=== PATIENT | female | born 1945 | race Caucasian/White ===

== ENCOUNTER 2017-07-28 15:06 | Outpatient (CLI) | payer BC | END 2017-07-28 15:07 | disposition home or self-care (01) | LOC: BICMAMMO 15:06 | PROVIDERS: ATTEND Family Medicine | DX: Z12.31 Encounter for screening mammogram for malignant neoplasm of breast (principal) | CPT/HCPCS: 77063; 77067 ==

== ENCOUNTER 2017-08-31 13:23 | Outpatient (CLI) | payer MEDICARE, BC | END 2017-08-31 13:24 | disposition home or self-care (01) | LOC: BICMRI 13:23 | PROVIDERS: ATTEND Family Medicine | DX: M25.551 Pain in right hip (principal); M22.2X1 Patellofemoral disorders, right knee ==

== ENCOUNTER 2018-07-30 14:18 | Outpatient (CLI) | payer MEDICARE, BC | END 2018-07-30 14:19 | disposition home or self-care (01) | LOC: BICMAMMO 14:18 | PROVIDERS: ATTEND Family Medicine | DX: Z12.31 Encounter for screening mammogram for malignant neoplasm of breast (principal); R92.1 Mammographic calcification found on diagnostic imaging of breast | CPT/HCPCS: 77063; 77067 ==

== ENCOUNTER 2018-09-01 10:22 | Inpatient (IN) | payer MEDICARE, BC ==
[2018-09-01 11:05] LABS: Band 20 % (5-11); Hemoglobin 17.4 g/dL (12.0-16.0); Lymphocytes 6 % (21-51); MDiff Complete? YES; Mean Corpuscular HGB CONC 32.8 g/dL (32.0-36.0); Mean Corpuscular Hemoglobin 28.7 pg (27.0-31.0); Mean Corpuscular Volume 87.7 fL (78.0-98.0); Mean Platelet Volume 9.6 fL (7.4-10.4); Monocytes 2 % (0-10); Neutrophil 72 % (42-75); Platelet Count 241 thou/uL (130-400); RBC Distribution Width 13.7 % (11.5-14.5); Red Blood Cell (RBC) Count 6.07 mill/uL (4.20-5.40); Vacuoles SLIGHT; White Blood Cell (WBC) Count 26.6 thou/uL (4.8-10.8)
[2018-09-01 11:08] LABS: ALT (SGPT) 19 U/L (8-55); AST (SGOT) 14 U/L (5-34); Albumin 3.9 g/dL (3.4-4.8); Alkaline Phosphatase 100 U/L (40-150); Anion Gap 20 mmol/L (10-20); BUN (Urea Nitrogen) 37 mg/dL (9.8-20.1); Bilirubin, Total 0.7 mg/dL (0.2-1.2); Calc. Creatinine Clearance 0 mL/min (70-130); Calcium 9.7 mg/dL (7.8-10.44); Carbon Dioxide 18 mmol/L (23-31); Chloride 96 mmol/L (98-107); Estimated GFR-MDRD 42; Globulin 3.4 g/dL (2.4-3.5); Glucose 171 mg/dL (83-110); Lipase 51 U/L (8-78); Potassium 3.6 mmol/L (3.5-5.1); Protein, Total 7.3 g/dL (6.0-8.3); Sodium 130 mmol/L (136-145)
[2018-09-01 11:17] LABS: Lactic Acid 4.5 mmol/L (0.5-2.2)
[2018-09-01] MEDS ORDERED: Ondansetron PF 4 MG/2 ML Vial ONE ×2 (11:59→13:58)
[2018-09-01] MEDS ORDERED: Ketorolac Tromethamine 30 MG/ML VIAL ONE ×2 (12:24→13:58)
--- NOTE | 2018-09-01 12:26 | RAD ---
CHEST 1 VIEW: Date: 09/01/18 HISTORY: Chest pain, shortness of breath, and abdominal pain with vomiting. FINDINGS: Monitor leads overlie the chest. Heart size is normal. The lungs are clear. IMPRESSION: No acute intrathoracic disease. Atherosclerosis of aorta. POS: [facility]
[2018-09-01 12:32] LABS: Bilirubin Small (Negative); Blood, Urine Negative (Negative); Clarity CLOUDY (Clear); Glucose, Urine (Dipstick) Negative (Negative); Leukocyte Negative (Negative); Nitrite Negative (Negative); Protein, Urine (Dipstick) 30 mg/dL (Neg-Trace); Specific Gravity, Urine 1.027 (1.002-1.036); Urobilinogen 0.2 mg/dL (0.2-1.0)
[2018-09-01 12:34] LABS: Bacteria/HPF None Seen HPF (None Seen); Squamous Epithelial 0-3 HPF (0-3); WBC/HPF 0-3 HPF (0-3)
[2018-09-01 12:42] LABS: Pathc Cast-AUWi Flag 5.84 (0-2.49)
[2018-09-01] MEDS ORDERED: ISOVUE-370 76%-LOCM 1 ML ONE (12:54)
[2018-09-01 13:01] LABS: Hyaline Casts/LPF 4-6 HYALINE CAST LPF (0-3 Hyaline)
--- NOTE | 2018-09-01 13:56 | CT ---
CT ABDOMEN AND PELVIS WITH CONTRAST: Date: 09/01/18 Multiple axial tomograms obtained through the abdomen and pelvis with IV enhancement. INDICATION: Upper abdominal pain. FINDINGS: Lung bases appear clear. Images through the liver reveal numerous scattered low density lesions. In the left lobe, there is a 1.0 cm lesion seen superiorly along the margin. Another 1.0 cm lesion is in the left lobe. There is a larger 2.5 cm lesion seen posterior left lobe. These have densities consistent with cysts. There are several other smaller low density foci, some of which are indeterminate. The stomach is mildly distended. There is mural thickening and inflammatory change involving the vira on of the duodenal bulb and first portion of the duodenum. There are several small pockets of gas whi ch appear extraluminal and adjacent to this first and second portion of the duodenum. These extend in to the region of the gallbladder fossa. The gallbladder is not definitely identified and may be contr acted and inflamed. These numerous tiny foci combined with inflammatory changes surrounding duodenum are concerning for duodenal ulcer with confined perforation. Inflammatory stranding is seen at the root of the mesentery. There are gas-filled dilated loops of proximal small bowel with decompressed distal ileal loops. The findings indicate a moderate to high grade mid small bowel obstruction. Etiology is not apparent on t his study. Adrenal glands and kidneys are unremarkable. Both kidneys show small low density foci which are most consistent with small cystic lesions which are too small to characterize. Aorta normal caliber. The colon is decompressed. Diverticulosis of the left colon and sigmoid noted. Tiny amount of free fl uid in the deep pelvis. Patient appears to be post hysterectomy. IMPRESSION: 1. Mural thickening and inflammatory change involving the first and second portions of the duodenum. Numerous small extraluminal gas pockets adjacent to this portion of the duodenum extending into the region of the gallbladder fossa. Duodenal ulcer with confined perforation should be excluded. Gallbla dder is not definitely identified and may be contracted and inflamed. 2. Moderate to high grade mid small bowel obstruction. 3. Numerous small low density lesions in the kidneys, too small to adequately characterize, most lik xochilt representing small cysts. 4. Diverticulosis of sigmoid colon. 5. Small amount of free fluid in the deep pelvis. Findings relayed to Dr. Davenport. CODE CR. POS: [facility]
[2018-09-01] MEDS ORDERED: PHENYLEPHRINE-NS 100 MCG/ML 10 ML SYRINGE ONE (13:58)
[2018-09-01] MEDS ORDERED: PROPOFOL 200 MG/20 ML VIAL ONE (13:58)
[2018-09-01] MEDS ORDERED: Succinylcholine Chloride 20 MG/ML 10 ml SYRINGE FS ONE (13:58)
[2018-09-01] MEDS ORDERED: Rocuronium Bromide 10 MG/ML (10ML VIAL) ONE (13:58)
[2018-09-01] MEDS ORDERED: Dexamethasone 20 MG/5 ML VIAL ONE (13:58)
[2018-09-01] MEDS ORDERED: Glycopyrrolate 0.2 MG/ML 5 ML SYRINGE ONE (13:58)
[2018-09-01] MEDS ORDERED: Sodium Chloride 0.9% 100 ML ONE (14:10)
[2018-09-01] MEDS ORDERED: Piperacillin/Tazobactam 3.375 GM VIAL ONE (14:10)
[2018-09-01] MEDS ORDERED: Midazolam HCl 2 mg/2 ml Vial ONE (14:41)
[2018-09-01] MEDS ORDERED: Fentanyl 100 MCG/2 ML VIAL ONE ×7 (14:41→19:01)
[2018-09-01] MEDS ORDERED: Dexamethasone 4 mg/ml Vial ONE (14:41)
--- NOTE | 2018-09-01 15:16 | HP ---
CHIEF COMPLAINT: Abdominal pain, nausea, vomiting, diarrhea. HISTORY OF PRESENT ILLNESS: The patient is a 73-year-old very pleasant white female. She began feeling ill about 5 days ago while she was on vacation in [place]. She had episodes of nausea and vomiting for the first couple of days. She subsequently had some diarrhea. She saw her primary care physician I believe yesterday and was given a prescription for Zofran with suspected gastroenteritis. She continued to deteriorate and last night she felt horrible and was very nauseated and took very little orally. She presented to the emergency room here today for evaluation. She was initially tachycardic with a pulse of about 115. She has been IV fluid hydrated and her pulse rate is now down to about 100. She underwent laboratory and radiologic studies. The CT scan shows inflammation around the 1st and 2nd part of the duodenum with potential extraluminal gas that looks potentially consistent with contained perforation of the duodenum. Additionally, she has changes typical of a small bowel obstruction with distended loops of small bowel and very obviously decompressed normal loops of distal bowel. There is no free air or free fluid diffusely in her abdomen. Her laboratory studies revealed that her lactate is elevated at 4.5. She has electrolyte abnormalities with low levels of sodium and chloride and she is little acidotic as well. Her BUN and creatinine are both up a little bit. Her CBC shows a white blood cell count of 26, with a hemoglobin level of 17, platelet count is 241 and she has 20% bandemia. She tells me that her discomfort is primarily in the upper abdomen. PAST MEDICAL HISTORY: Depression, hypertension, hypercholesterolemia, arthritis. PAST SURGICAL HISTORY: Hysterectomy in her 20s, carpal tunnel surgery, jaw surgery. MEDICATIONS: 1. Effexor. 2. Blood pressure medication. 3. Cholesterol medication. 4. Plaquenil. 5. P.r.n. tramadol/Tylenol 3. ALLERGIES: PENICILLIN, BUT SHE IS UNCERTAIN WHAT HER REACTION WAS TO THIS. PERSONAL AND SOCIAL HISTORY: She is , with 2 children. She lives in [place]. Her daughter is present at bedside. Her primary care physician is Dr. Palmer. Her hospital pharmacy director is Dr. Velazquez. She does not smoke nor does she drink alcohol and she currently lives by herself. REVIEW OF SYSTEMS: Otherwise unremarkable. FAMILY HISTORY: Noncontributory. PHYSICAL EXAMINATION: VITAL SIGNS: Her pulse is 100, blood pressure is stable and within normal limits. GENERAL: She is a well-developed, well-nourished, very pleasant and alert white female, but she is obviously uncomfortable. She is alert and oriented x3. HEAD, EYES, EARS, NOSE, AND THROAT: Unremarkable. NECK: Supple. LUNGS: Clear to auscultation anteriorly. CARDIAC: Regular rate and rhythm without murmur. ABDOMEN: Soft with minimal tenderness inferiorly. An obvious discomfort in the upper abdomen, but no evidence of peritonitis. Bowel sounds are present and fairly normoactive. EXTREMITIES: Unremarkable. LABORATORY AND X-RAYS: As mentioned above. ASSESSMENT AND PLAN: The patient with what appears to be a perforated duodenal ulcer, probably contained and a small-bowel obstruction, probably related to a prior hysterectomy. I would recommend laparotomy to address both problems. I have discussed this in detail with the patient and her daughter and they understand and agree to proceed with surgery at this time. Job ID: [id number]
[2018-09-01] MEDS ORDERED: SUGAMMADEX SODIUM 500 MG/5 ML VIAL ONE (17:57)
[2018-09-01] MEDS ORDERED: D5 1/2 NS w/20 mEq KCL 1,000 ML ONE (19:03)
[2018-09-01] MEDS ORDERED: Ondansetron PF 4 MG/2 ML Vial IVP PRN (19:45)
[2018-09-01] MEDS ORDERED: hydrALAZINE 20 MG/ML VIAL SLOW IVP PRN (19:45)
[2018-09-01] MEDS ORDERED: Promethazine HCl 25 MG/ML VIAL IM PRN (19:45)
[2018-09-01] MEDS ORDERED: Morphine 4 MG/ML VIAL SLOW IVP PRN (19:45)
[2018-09-01] MEDS: Ketorolac Tromethamine 30 MG/ML VIAL IVP SCH (21:11)
[2018-09-01] MEDS: Acetaminophen 1,000 MG in Premix Bag 1 BAG IVPB SCH (21:11)
[2018-09-01] MEDS: D5 1/2 NS w/20 mEq KCL 1,000 ML IV SCH (21:14)
[2018-09-01] MEDS: cefOXitin Sodium/Dextrose,Iso 2 GM in Premix Bag 1 BAG IVPB SCH (21:53)
[2018-09-01 22:36] VITALS: BMI 27.8
[2018-09-01] MEDS ORDERED: Famotidine/PF 20 mg/2ml Vial SLOW IVP SCH (22:45)
[2018-09-01] MEDS ORDERED: Famotidine 20 MG TAB PO SCH (22:45)
[2018-09-01] MEDS: Morphine 4 MG/ML VIAL SLOW IVP PRN (23:29)
[2018-09-02] MEDS: Ketorolac Tromethamine 30 MG/ML VIAL IVP SCH ×4 (03:22→20:47)
[2018-09-02] MEDS: Acetaminophen 1,000 MG in Premix Bag 1 BAG IVPB SCH ×3 (03:24→15:54)
[2018-09-02] MEDS: D5 1/2 NS w/20 mEq KCL 1,000 ML IV SCH ×2 (03:34→13:31)
[2018-09-02] MEDS: Morphine 4 MG/ML VIAL SLOW IVP PRN ×2 (04:52→09:32)
[2018-09-02] MEDS: cefOXitin Sodium/Dextrose,Iso 2 GM in Premix Bag 1 BAG IVPB SCH (06:26)
[2018-09-02 07:47] LABS: Anion Gap 11 mmol/L (10-20); BUN (Urea Nitrogen) 41 mg/dL (9.8-20.1); Calc. Creatinine Clearance 39 mL/min (70-130); Calcium 7.9 mg/dL (7.8-10.44); Carbon Dioxide 22 mmol/L (23-31); Chloride 100 mmol/L (98-107); Estimated GFR-MDRD 35; Glucose 156 mg/dL (83-110); Potassium 4.1 mmol/L (3.5-5.1); Sodium 129 mmol/L (136-145)
[2018-09-02 08:56] LABS: #Lymphocytes 1.2 thou/uL (1.20-3.40); #Monocytes 0.7 thou/uL (0.11-0.59); #Neutrophils 7.8 thou/uL (1.40-6.50); %Basophils 0.1 % (0.0-1.0); %Monocytes 7.1 % (0.0-10.0); %Neutrophils 80.7 % (42.0-75.0); Hemoglobin 12.2 g/dL (12.0-16.0); Mean Corpuscular HGB CONC 32.6 g/dL (32.0-36.0); Mean Corpuscular Hemoglobin 28.6 pg (27.0-31.0); Mean Corpuscular Volume 87.8 fL (78.0-98.0); Mean Platelet Volume 9.4 fL (7.4-10.4); Platelet Count 219 thou/uL (130-400); RBC Distribution Width 13.6 % (11.5-14.5); Red Blood Cell (RBC) Count 4.25 mill/uL (4.20-5.40); White Blood Cell (WBC) Count 9.7 thou/uL (4.8-10.8)
[2018-09-02] MEDS: Enoxaparin Sodium 40 MG/0.4 ML SYRINGE SC SCH (09:29)
[2018-09-02] MEDS: Famotidine/PF 20 mg/2ml Vial SLOW IVP SCH ×2 (09:30→20:46)
[2018-09-02] MEDS: Famotidine 20 MG TAB PO SCH ×2 (09:35→23:02)
[2018-09-02 09:47] LABS: ALT (SGPT) 38 U/L (8-55); AST (SGOT) 39 U/L (5-34); Albumin 2.7 g/dL (3.4-4.8); Alkaline Phosphatase 60 U/L (40-150); Bilirubin, Direct 0.2 mg/dL (0.1-0.3); Bilirubin, Total 0.4 mg/dL (0.2-1.2)
--- NOTE | 2018-09-02 10:13 | PRG ---
DATE OF SERVICE: 09/02/2018 SUBJECTIVE: Ms. Rosenbaum is postoperative day #1 from a laparotomy in treatment of a gallstone ileus. This required a segmental small bowel resection as well as cholecystectomy and repair of duodenotomy with an omental patch. She has done well overnight. She notes minimal but appropriate abdominal discomfort. Nasogastric tube and Molina catheter still in place. She has ambulated in the hallway. OBJECTIVE: VITAL SIGNS: On examination today, she is afebrile. Pulse 91, pressure 94/60. LUNGS: Clear to auscultation. ABDOMEN: Soft, but there is no significant bowel sounds. Dressings intact. ROBERT drainage is nonbilious. LABORATORY DATA: Her CBC is still pending almost at 9 in the morning. Her electrolytes revealed her BUN and creatinine has gone up. Liver function tests are pending. ASSESSMENT: She overall appears to be doing well following her surgery. She probably looks a little hypovolemic as her creatinine has gone up and her urine output has not been great. I will give her fluid bolus this morning and continue her IV fluids. Molina catheter will be removed, but her nasogastric tube will be left in place. She appears to be making good appropriate progress. Job ID: [id number]
[2018-09-02] MEDS ORDERED: Sodium Chloride 0.9% 500 ML IV SCH (11:30)
[2018-09-03] MEDS: D5 1/2 NS w/20 mEq KCL 1,000 ML IV SCH ×4 (00:18→19:42)
[2018-09-03] MEDS: Ketorolac Tromethamine 30 MG/ML VIAL IVP SCH ×4 (03:27→19:40)
[2018-09-03 05:46] LABS: #Monocytes 0.8 thou/uL (0.11-0.59); #Neutrophils 7.2 thou/uL (1.40-6.50); %Basophils 0.2 % (0.0-1.0); %Eosinophils 0.1 % (0.0-10.0); %Lymphocytes 19.5 % (21.0-51.0); %Neutrophils 72.3 % (42.0-75.0); Hemoglobin 11.1 g/dL (12.0-16.0); Mean Corpuscular HGB CONC 31.7 g/dL (32.0-36.0); Mean Corpuscular Hemoglobin 28.6 pg (27.0-31.0); Mean Corpuscular Volume 90.3 fL (78.0-98.0); Mean Platelet Volume 9.3 fL (7.4-10.4); Platelet Count 234 thou/uL (130-400); RBC Distribution Width 13.7 % (11.5-14.5); Red Blood Cell (RBC) Count 3.89 mill/uL (4.20-5.40)
[2018-09-03 06:03] LABS: ALT (SGPT) 36 U/L (8-55); AST (SGOT) 36 U/L (5-34); Albumin 2.9 g/dL (3.4-4.8); Alkaline Phosphatase 66 U/L (40-150); Anion Gap 13 mmol/L (10-20); BUN (Urea Nitrogen) 29 mg/dL (9.8-20.1); Bilirubin, Total 0.3 mg/dL (0.2-1.2); Calc. Creatinine Clearance 56 mL/min (70-130); Carbon Dioxide 22 mmol/L (23-31); Chloride 103 mmol/L (98-107); Estimated GFR-MDRD 53; Globulin 2.9 g/dL (2.4-3.5); Glucose 92 mg/dL (83-110); Potassium 3.8 mmol/L (3.5-5.1); Protein, Total 5.8 g/dL (6.0-8.3); Sodium 134 mmol/L (136-145)
[2018-09-03] MEDS: Famotidine/PF 20 mg/2ml Vial SLOW IVP SCH ×2 (08:28→19:41)
[2018-09-03] MEDS: Enoxaparin Sodium 40 MG/0.4 ML SYRINGE SC SCH (08:28)
[2018-09-03] MEDS: Famotidine 20 MG TAB PO SCH ×2 (08:38→19:35)
--- NOTE | 2018-09-03 14:21 | PQF ---
CLINICAL DOCUMENTATION IMPROVEMENT CLARIFICATION FORM: ICD-10 Updated PLEASE DO AN ADDENDUM TO THE PROGRESS NOTE WITH ANY DOCUMENTATION UPDATES OR ADDITIONS AND CARRY THROUGH TO DC SUMMARY. THANK YOU. DATE: 09/03/18 ATTN: DR. BECKMAN Please exercise your independent, professional judgment in responding to the clarification form. Clinical indicators are provided on the bottom of this form for your review Please check appropriate box(s) to clarify if the following diagnosis has been ruled in or ruled out: "SEPSIS" [ x ] Ruled in diagnosis [ ] Continue to treat [ x ] Resolved [ ] Ruled out diagnosis [ ] Other diagnosis In addition, please specify: Present on Admission (POA): [ x ] Yes [ ] No [ ] Unable to determine For continuity of documentation, please document condition throughout progress notes and discharge summary. Thank You. CLINICAL INDICATORS - SIGNS / SYMPTOMS / LABS ER NOTE: "SEPSIS" WBC 26.6 (3/16) BANDS 20 (3/16) LACTIC ACID 4.5 (3/16) PULSE 113 RR 22 RISKS: PERFORATED DUODENAL ULCER SBO TREATMENT: EXPLORATORY LAP WITH BOWEL RESECTION IV FLUIDS (ER-PRESENT) IV VANCOMYCIN (ER) IV ZOSYN (ER) SERIAL LABS (This form is maintained as a part of the permanent medical record) 2014 [employer]. All Rights Reserved JOSE [email or web address] Office: [phone] [facility]Win
--- NOTE | 2018-09-03 19:52 | PRG ---
DATE OF SERVICE: 09/03/2018 SUBJECTIVE: Ms. Rosenbaum is postoperative day #2 from a laparotomy and treatment of gallstone ileus. This required segmental small bowel resection, cholecystectomy, as well as repair of duodenostomy. She is resting comfortably on the surgical floor. She is apparently not requiring any narcotics. Her nasogastric tube was inadvertently removed yesterday evening and is still out. She denies any nausea or vomiting since it has been removed. She is taking ice chips sparingly. She denies any flatus or bowel movement. She is walking regularly. Her urine catheter has been removed, and she is voiding uneventfully. OBJECTIVE: VITAL SIGNS: She is afebrile. Her pulse is 100, which is up slightly from yesterday. Her blood pressure is 96/55, which is relatively stable since she has been here in the hospital. Her urine output has been over a 1000 mL per day. Her drain put out 220 mL yesterday and is not drained very much today. LUNGS: Her lungs are clear to auscultation. CARDIAC: Regular rate and rhythm. ABDOMEN: Soft with minimal tenderness. Incision is healing nicely. She has hypoactive bowel sounds. LABORATORY DATA: Her CBC reveals white blood cell count of 10.0 with a hemoglobin of 11.1 and a platelet count of 234. She has an unremarkable differential. Her chemistry panel reveals minimal electrolyte abnormalities. Her creatinine dropped from 1.46 yesterday down to 1.02 today and her BUN dropped significantly as well. Her liver function tests remained essentially normal. Her albumin is 2.9. ASSESSMENT: She appears to be doing well following her laparotomy. She still appears to have an expected postoperative ileus and is not ready to advance her diet. Since she did have a repair of her duodenostomy, I will be cautious about advancing her diet. Hopefully, if there is evidence of bowel function tomorrow, we can start some clear liquids. Job ID: [id number]
[2018-09-04] MEDS: Ketorolac Tromethamine 30 MG/ML VIAL IVP SCH ×3 (02:04→14:54)
[2018-09-04] MEDS: Famotidine/PF 20 mg/2ml Vial SLOW IVP SCH ×2 (08:13→20:42)
[2018-09-04] MEDS: D5 1/2 NS w/20 mEq KCL 1,000 ML IV SCH ×3 (08:20→20:42)
[2018-09-04] MEDS: Famotidine 20 MG TAB PO SCH ×2 (08:21→20:43)
[2018-09-04] MEDS: Enoxaparin Sodium 40 MG/0.4 ML SYRINGE SC SCH (11:57)
[2018-09-04] MEDS: Ketorolac Tromethamine 30 MG/ML VIAL IVP PRN (21:36)
[2018-09-05] MEDS: Ketorolac Tromethamine 30 MG/ML VIAL IVP PRN ×3 (05:18→22:05)
[2018-09-05] MEDS: D5 1/2 NS w/20 mEq KCL 1,000 ML IV SCH ×3 (05:19→20:07)
[2018-09-05 06:19] LABS: #Lymphocytes 1.9 thou/uL (1.20-3.40); #Monocytes 0.9 thou/uL (0.11-0.59); #Neutrophils 3.9 thou/uL (1.40-6.50); %Basophils 0.6 % (0.0-1.0); %Eosinophils 0.2 % (0.0-10.0); %Lymphocytes 28.6 % (21.0-51.0); %Monocytes 12.8 % (0.0-10.0); %Neutrophils 57.8 % (42.0-75.0); Hemoglobin 10.2 g/dL (12.0-16.0); Mean Corpuscular HGB CONC 31.8 g/dL (32.0-36.0); Mean Corpuscular Hemoglobin 28.6 pg (27.0-31.0); Mean Corpuscular Volume 89.9 fL (78.0-98.0); Mean Platelet Volume 7.8 fL (7.4-10.4); Platelet Count 296 thou/uL (130-400); RBC Distribution Width 13.8 % (11.5-14.5); Red Blood Cell (RBC) Count 3.55 mill/uL (4.20-5.40); White Blood Cell (WBC) Count 6.7 thou/uL (4.8-10.8)
[2018-09-05 07:21] LABS: ALT (SGPT) 30 U/L (8-55); AST (SGOT) 24 U/L (5-34); Albumin 2.7 g/dL (3.4-4.8); Alkaline Phosphatase 64 U/L (40-150); Anion Gap 12 mmol/L (10-20); BUN (Urea Nitrogen) 6 mg/dL (9.8-20.1); Bilirubin, Total 0.2 mg/dL (0.2-1.2); Calc. Creatinine Clearance 89 mL/min (70-130); Calcium 8.4 mg/dL (7.8-10.44); Carbon Dioxide 19 mmol/L (23-31); Chloride 110 mmol/L (98-107); Estimated GFR-MDRD Greater than 90; Globulin 2.8 g/dL (2.4-3.5); Glucose 101 mg/dL (83-110); Potassium 4.4 mmol/L (3.5-5.1); Protein, Total 5.5 g/dL (6.0-8.3); Sodium 137 mmol/L (136-145)
[2018-09-05] MEDS: Famotidine 20 MG TAB PO SCH ×2 (08:30→20:19)
[2018-09-05] MEDS: Enoxaparin Sodium 40 MG/0.4 ML SYRINGE SC SCH (08:31)
[2018-09-05] MEDS: Famotidine/PF 20 mg/2ml Vial SLOW IVP SCH ×2 (08:31→20:07)
--- NOTE | 2018-09-06 01:25 | OP ---
DATE OF PROCEDURE: 09/01/2018 PREOPERATIVE DIAGNOSIS: Contained perforation of duodenum with small bowel obstruction. 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 OPERATION PERFORMED: Exploratory laparotomy, segmental small bowel resection, repair of duodenal perforation, omental flap patch placement, and cholecystectomy. ANESTHESIA: General endotracheal. INDICATIONS: The patient is a 73-year-old white female. She presented to the emergency room with complaint of severe abdominal pain. She was noted to have significant leukocytosis. Imaging studies revealed air external to the duodenum without diffuse free air, felt to potentially be consistent with a contained duodenal perforation. She was also noted to have a small bowel obstruction. She had a history of hysterectomy that was potentially an etiology for this. I recommended abdominal exploration to address these issues. DESCRIPTION OF OPERATION: Informed consent was obtained. The patient was taken to the operating room where general endotracheal anesthesia was obtained with the patient in supine position. Abdomen was prepped with ChloraPrep and draped in sterile fashion. A midline abdominal incision was created and extended from the xiphoid process distally to just below the umbilicus. Dissection was carried through skin and subcutaneous tissue and through the fascia in the midline. There was a sheet of omentum immediately underlying the abdominal incision. This was adherent to the pelvic structures. As I was concerned about possible obstruction in this area, I decided to mobilize the entire omentum. Electrocautery was used to dissect the omentum of the lower abdominal structures and from within the pelvis. I was thus able to reflect the omentum superiorly. The small bowel was examined and found to be without significant adhesions. The only area that was adhesed was a segment that was inflamed that was adherent to the transverse mesocolon. Just distal to this segment of inflammation was a firm palpable mass that had smooth external borders that I thought was consistent with a large gallstone. The small bowel was dilated proximal to this inflamed segment and thickened within the inflamed segment and decompressed distal to the obstructing gallstone. I attempted to milk the gallstone back through the inflamed segment to the dilated small bowel to potentially remove the gallstone within the enterotomy. I could not milk the stone through the inflamed segment of small bowel. The small bowel distal to the inflamed segment was not adequately dilated, but I could safely perform an enterotomy and close it without risking a stricture. I decided therefore to perform a short segmental small bowel resection to include the inflamed, thickened segment of small bowel as well as the gallstone. Prior to proceeding with that, I explored within the upper abdomen. As expected, there was a densely inflamed segment of gallbladder adherent to the lateral aspect of the second portion of the duodenum. By palpation, the gallbladder was quite thickened and inflamed. It felt as though there could be additional gallstones within the gallbladder. As I mobilized some of the inflammatory tissue away from the duodenum, there was a very quicker entry into the duodenum. This was actually with fairly minimal traction. At this point, I decided to complete the removal of the gallbladder from the duodenum. In so doing, there was an opening into the duodenum that was about 1 cm in size. I examined the duodenum internally and found its lumen to be of appropriate caliber. I therefore closed the duodenotomy with a series of interrupted sutures of 3-0 silk. This led to appropriate closure of the defect. I tested the integrity by insufflating air through the nasogastric tube with distal duodenal obstruction while the duodenostomy was under water. There was no air leak. I turned my attention to the gallbladder. When I attempted to dissect the gallbladder off the liver, I was immediately within the lumen of the gallbladder. I decided to perform a subtotal cholecystectomy, leaving the back wall of the gallbladder intact. The gallbladder was removed in a few pieces and submitted to Pathology. At the apex of the gallbladder, although I did not see any bile coming into the gallbladder, I placed a [id number] suture of 2-0 silk to potentially prevent a bile leak. The cystic duct nor cystic artery was clearly identified. I then returned my attention to the segment of small bowel. About a 9-inch segment of small bowel was resected with viable bowel on either side of the division. This was resected using a double stapled technique with a SHIRA 75 stapler. The intervening mesentery was taken down between clamps and 2-0 silk ties. Mesenteric defect was closed with 3-0 Vicryl. The small bowel anastomosis was buttressed with several interrupted sutures of 3-0 silk. The omentum was then examined. I found a segment with relatively minimal vascular arcades. This was based on the left side of the transverse colon. The omentum was incised with electrocautery and the left omentum was easily mobilized up over the duodenum where it was tacked in place over the duodenotomy with 4 interrupted sutures of 3-0 silk. The abdominal cavity was irrigated with 2 L of warm saline and all irrigant was aspirated. There have been no spillage of any enteric contents. Blood loss had been negligible. #19 round fluted drain was obtained and brought out of the right lower abdomen and positioned in the subhepatic space adjacent to the duodenotomy. The drain was sutured with a 3-0 nylon suture. The fascia was then closed using a running suture of looped #1 PDS. The subcutaneous tissue was extensively irrigated. The skin edges were approximated with skin anne. Dry gauze dress was placed externally. There were no complications. The patient tolerated the procedure well and was taken to recovery room in stable condition. Job ID: [id number]
[2018-09-06] MEDS: Famotidine/PF 20 mg/2ml Vial SLOW IVP SCH (08:05)
[2018-09-06] MEDS: Ketorolac Tromethamine 30 MG/ML VIAL IVP PRN (09:17)
[2018-09-06] MEDS: Enoxaparin Sodium 40 MG/0.4 ML SYRINGE SC SCH (09:17)
[2018-09-06] MEDS: Famotidine 20 MG TAB PO SCH (09:17)
[2018-09-06 11:19] VITALS: BP 126/74; TEMP 98.4
== END 2018-09-06 14:00 | disposition home or self-care (01) | DRG 854 ==
LOC: ERS 10:22 → SDC 14:39 → SURG A 15:33
PROVIDERS: ADMIT Specialist; ATTEND Specialist
PROC: 0FT40ZZ Resection of Gallbladder, Open Approach (ICD-10-PCS; principal; 2018-09-01)
PROC: 0DU907Z Supplement Duodenum with Autologous Tissue Substitute, Open Approach (ICD-10-PCS; 2018-09-01)
PROC: 0DB90ZZ Excision of Duodenum, Open Approach (ICD-10-PCS; 2018-09-01)
DX: A41.9 Sepsis, unspecified organism (principal); K80.21 Calculus of gallbladder without cholecystitis with obstruction; K56.3 Gallstone ileus; F32.9 Major depressive disorder, single episode, unspecified; I10 Essential (primary) hypertension; F41.9 Anxiety disorder, unspecified; E86.1 Hypovolemia; E78.00 Pure hypercholesterolemia, unspecified; M19.90 Unspecified osteoarthritis, unspecified site; Z90.710 Acquired absence of both cervix and uterus; Z79.899 Other long term (current) drug therapy; Z88.0 Allergy status to penicillin; Z88.5 Allergy status to narcotic agent; Z88.6 Allergy status to analgesic agent
CPT/HCPCS: 36415; 36416; 71045; 74177; 80048; 80053; 80076; 81003; 81015; 82550; 83605; 83690; 84484; 85025; 87804; 88304; 88305; 88307; 88341; 88342; 93005; 94640; 96361; 96374; 96375; J0131; J1100; J1650; J1885; J2250; J2270; J2405; J2543; J2704; J3010; J3370; J7050; J7620; Q9966; S0028

== ENCOUNTER 2018-10-25 10:24 | Outpatient (CLI) | payer MEDICARE, BC ==
[2018-10-25 11:20] LABS: #Lymphocytes 2.5 thou/uL (1.20-3.40); #Monocytes 0.9 thou/uL (0.11-0.59); #Neutrophils 4.4 thou/uL (1.40-6.50); %Basophils 0.3 % (0.0-1.0); %Eosinophils 0.1 % (0.0-10.0); %Lymphocytes 32.4 % (21.0-51.0); %Monocytes 11.2 % (0.0-10.0); Hemoglobin 12.2 g/dL (12.0-16.0); Mean Corpuscular HGB CONC 31.9 g/dL (32.0-36.0); Mean Corpuscular Hemoglobin 28.1 pg (27.0-31.0); Mean Corpuscular Volume 88.2 fL (78.0-98.0); Mean Platelet Volume 8.6 fL (7.4-10.4); Platelet Count 243 thou/uL (130-400); RBC Distribution Width 13.7 % (11.5-14.5); Red Blood Cell (RBC) Count 4.34 mill/uL (4.20-5.40); White Blood Cell (WBC) Count 7.9 thou/uL (4.8-10.8)
[2018-10-25 11:46] LABS: Anion Gap 12 mmol/L (10-20); BUN (Urea Nitrogen) 12 mg/dL (9.8-20.1); Calc. Creatinine Clearance 0 mL/min (70-130); Calcium 9.2 mg/dL (7.8-10.44); Carbon Dioxide 27 mmol/L (23-31); Chloride 101 mmol/L (98-107); Estimated GFR-MDRD 79; Glucose 91 mg/dL (83-110); Potassium 3.9 mmol/L (3.5-5.1); Sodium 136 mmol/L (136-145)
--- NOTE | 2018-10-31 14:31 | EKG ---
Test Reason : Blood Pressure : / mmHG Vent. Rate : 088 BPM Atrial Rate : 088 BPM P-R Int : 160 ms QRS Dur : 084 ms QT Int : 370 ms P-R-T Axes : 056 -01 034 degrees QTc Int : 447 ms Normal sinus rhythm Cannot rule out Anterior infarct , age undetermined Abnormal ECG Confirmed by LES ZAYAS ([id number]) on 10/31/2018 2:30:57 PM Referred By: RK Confirmed By:LES ZAYAS
== END 2018-10-25 10:25 | disposition home or self-care (01) ==
LOC: LABBT 10:24
PROVIDERS: ATTEND Specialist
DX: Z01.818 Encounter for other preprocedural examination (principal); C23 Malignant neoplasm of gallbladder
CPT/HCPCS: 80048; 85025; 93005; 93010

== ENCOUNTER 2018-10-26 11:46 | Day surgery (SDC) | payer MEDICARE, BC ==
[2018-10-25 10:30] VITALS: BMI 28.5
[2018-10-26] MEDS ORDERED: Lidocaine 1% (PF) 30 ML VIAL ONE (11:53)
[2018-10-26] MEDS ORDERED: Bupivacaine/Epinephrine 0.25% 30 ML VIAL ONE (11:53)
[2018-10-26] MEDS ORDERED: Propofol 500 MG/50 ML VIAL ONE (12:13)
[2018-10-26] MEDS ORDERED: Fentanyl 100 MCG/2 ML VIAL ONE (12:13)
[2018-10-26] MEDS ORDERED: Ketorolac Tromethamine 30 MG/ML VIAL ONE (12:26)
--- NOTE | 2018-10-26 13:52 | RAD ---
XR Chest 1 View History: [Line placement] Comparison: Radiograph September 01, 2018 Findings: Port catheter is in place with some extrinsic compression near the undersurface of the clav icle. The tip is at the inferior SVC. Impression: Abnormal pinching of the port catheter between the first rib and clavicle. Revision october e necessary. No pneumothorax.
[2018-10-26] MEDS ORDERED: Lidocaine 1% PF 5 ML VIAL ONE (17:25)
[2018-10-26] MEDS ORDERED: ePHEDrine 50 MG/ML VIAL ONE (17:25)
[2018-10-26] MEDS ORDERED: Ondansetron PF 4 MG/2 ML Vial ONE (17:25)
[2018-10-26] MEDS ORDERED: PROPOFOL 200 MG/20 ML VIAL ONE (17:25)
--- NOTE | 2018-10-27 18:28 | OP ---
DATE OF PROCEDURE: 10/26/2018 PREOPERATIVE DIAGNOSIS: Metastatic gallbladder cancer. POSTOPERATIVE DIAGNOSIS: Metastatic gallbladder cancer. OPERATION PERFORMED: Placement of right subclavian power compatible low-profile MediPort. ANESTHESIA: Total intravenous anesthesia with local using 0.25% Marcaine with epinephrine. INDICATIONS: The patient is a 73-year-old white female. She has been diagnosed with gallbladder cancer following her open cholecystectomy. Unfortunately, recent imaging studies indicated spread to surrounding lymph nodes and chemotherapy has been recommended for her treatment initially. MediPort placement is requested for this purpose. DESCRIPTION OF OPERATION: Informed consent was obtained. The patient was taken to the operating room where total intravenous anesthesia was obtained with the patient in supine position. Right periclavicular area was prepped with ChloraPrep and draped in sterile fashion. Local anesthetic was infiltrated and a large-gauge needle was passed under the clavicle in the subclavian vein. Guidewire was passed through the needle and fluoroscopically confirmed to enter the superior vena cava. Additional local anesthetic was infiltrated and transverse incision was created based on needle insertion site. A subcutaneous pocket was dissected inferiorly. Introducer dilator was passed over the guidewire under fluoroscopic guidance. The guidewire and dilator were removed, and the catheter was passed through the introducer. The tip of the catheter was positioned at the atriocaval junction and the catheter was trimmed to the appropriate length and secured to the locking hub of the MediPort. The port was then placed in the subcutaneous pocket where it was secured to the pectoral fascia with 2 interrupted sutures of 3-0 Prolene. The incision was then closed in layers with 3-0 and 4-0 Monocryl. Additional local anesthetic was infiltrated. The port was cannulated with a Kingsley needle and it aspirated blood freely and was flushed with heparinized saline. Dermabond was placed externally on the skin incision. There were no complications. Blood loss was negligible. The patient tolerated the procedure well and was taken to recovery room in stable condition. FINDINGS: A low-profile power compatible port was placed in the right subclavian vein uneventfully. There was essentially no blood loss and no complications. Her anatomy was unremarkable. She tolerated the procedure well and was taken to recovery room in stable condition. Job ID: [id number]
== END 2018-10-26 15:20 | disposition home or self-care (01) ==
LOC: SDC 11:46
PROVIDERS: ATTEND Specialist
PROC: 0JH63WZ Insertion of Totally Implantable Vascular Access Device into Chest Subcutaneous Tissue and Fascia, Percutaneous Approach (ICD-10-PCS; principal; 2018-10-26)
DX: C23 Malignant neoplasm of gallbladder (principal); C77.2 Secondary and unspecified malignant neoplasm of intra-abdominal lymph nodes; F41.9 Anxiety disorder, unspecified; E78.00 Pure hypercholesterolemia, unspecified; Z90.49 Acquired absence of other specified parts of digestive tract; Z79.899 Other long term (current) drug therapy; Z88.0 Allergy status to penicillin; Z88.5 Allergy status to narcotic agent; Z98.890 Other specified postprocedural states; Z79.891 Long term (current) use of opiate analgesic
CPT/HCPCS: 36561; 71045; C1788; J0131; J0690; J1642; J1885; J2001; J2405; J2704; J3010; J3490

== ENCOUNTER 2018-11-01 08:18 | Outpatient (CLI) | payer MEDICARE, BC ==
--- NOTE | 2018-11-01 09:03 | ULT ---
US Thyroid STANDARD History: [Abnormal nodule seen on a PET scan] Comparison: None Findings: Real-time grayscale and color evaluation of the thyroid was performed. The isthmus measures 0.3 cm in AP dimension. Right lobe measures 3.9 x 2 x 1.6 cm and the left lobe measures 3.7 x 1.5 x 1.3 cm. The right lobe of thyroid is a solid hypoechoic taller than wide nodule with smooth margins with punc gay echogenic foci. This is TIRADS 5: Highly suspicious. Fine-needle aspiration is recommended. In the superior pole left lobe of thyroid is a 1 x 0.5 x 0.4 cm wider than tall solid hypoechoic nodu le with smooth margins without echogenic foci. This is TIRADS 4: Mildly suspicious. Follow-up in 6 months is recommended. Also in the left lobe of the thyroid is a solid relatively isoechoic wider than tall nodule with ill- defined margins without echogenic foci measuring 1.4 x 1 x 1.2 cm. This is TIRADS3: Mildly suspicious. No aspiration or follow-up is required. In the isthmus is a spongiform 0.2 x 0.8 x 0.5 cm nodule. This is tirades 1: Benign Impression: 1. Nodule in the right lobe of the thyroid is TIRADS 5: Highly suspicious. Fine-needle aspiration is warranted. 2. Nodule in the left lobe of thyroid is described as TIRADS 4: Mildly suspicious. Given its size, fo llow-up in 6 months is recommended.
== END 2018-11-01 08:19 | disposition home or self-care (01) ==
LOC: BICULT 08:18
PROVIDERS: ATTEND Internal Medicine Hematology & Oncology
DX: E04.2 Nontoxic multinodular goiter (principal); C23 Malignant neoplasm of gallbladder
CPT/HCPCS: 76536; 80053; 82248; 83615; 83735; 84100; 84550

== ENCOUNTER 2019-01-02 13:53 | Outpatient (CLI) | payer MEDICARE, BC ==
[~2019-01-02 13:53] MED LIST: Iopamidol 370 76% 100 ML VIAL ONE
--- NOTE | 2019-01-02 15:28 | CT ---
CTA OF THE CHEST AND ABDOMEN AND PELVIS WITH IV CONTRAST: INDICATION: History of biliary cancer with right upper quadrant pain for one week. COMPARISON: CT abdomen and pelvis from 09/01/2018. FINDINGS: There is a right chest wall port in place. No suspicious pulmonary nodule, pleural effusion or pneumothorax is demonstrated. There are scattered vascular calcifications. There is an enlarging hypodense mass within segment 5 of the right hepatic lobe measuring 2.4 cm, pr eviously measuring 1.1 cm. Additional enlarged hypodense mass is seen within segment 5 measuring 2.1 cm. Previously seen hypodense mass involving the posterior right hepatic lobe adjacent to the IVC on image 42 series 3 is enlarged measuring 4.5 cm, now measuring 2.5 cm. A small 9 mm lesion within the left hepatic dome is stable. Other additional scattered hypodense lesions are stable. Ther e has been interval development of subcapsular hypodense collections overlying the anterior right hepatic lobe measuring 6.5 x 4.9 cm. An additional collection is seen overlying the right hepatic dom e measuring 10.5 x 4.4 cm. There is an enlarging hypodense lesion involving the posterior spleen now measuring 1.2 cm, where it previously measured 6 mm. Echogenicity adrenal glands are unremarkable appearing. Hypodense involving the kidneys are stable likely related to renal cysts. There are moderate calcific lesions involving the abdominal pelvic vasculature. There are scattered diverticula involving the colon without evidence of active diverticulitis. No maliha inable fluid collection is evident. No acute osseous abnormality is evident. There is scattered degenerative and osteoarthritic change. T here are healing anterolateral third through fifth rib fractures. IMPRESSION: 1. Interval development of large subcapsular fluid density collections overlying the right hepatic do me suspicious for remote subcapsular hematomas. 2. Worsening metastatic disease of the right hepatic lobe 3. Enlarging hypodensity within the spleen may reflect a metastatic lesion versus enlarging cyst 4. No definite evidence to suggest metastatic disease to the thorax. Transcribed Date/Time: 01/02/2019 4:00 PM
== END 2019-01-02 13:54 | disposition home or self-care (01) ==
LOC: SCSCT 13:53
PROVIDERS: ATTEND Internal Medicine Hematology & Oncology
DX: C24.0 Malignant neoplasm of extrahepatic bile duct (principal); C78.7 Secondary malignant neoplasm of liver and intrahepatic bile duct; D73.89 Other diseases of spleen
CPT/HCPCS: 71260; 74177; Q9967

== ENCOUNTER 2019-02-03 15:39 | Inpatient (IN) | payer MEDICARE, BC ==
[~2019-02-03 15:39] MED LIST changes: +ISOVUE-370 76%-LOCM 1 ML ONE; -Iopamidol 370 76% 100 ML VIAL ONE
[2019-02-03 16:43] LABS: Hemoglobin 8.4 g/dL (12.0-16.0); Mean Corpuscular HGB CONC 32.7 g/dL (32.0-36.0); Mean Corpuscular Hemoglobin 30.2 pg (27.0-31.0); Mean Corpuscular Volume 92.3 fL (78.0-98.0); Mean Platelet Volume 7.1 fL (7.4-10.4); Platelet Count 144 thou/uL (130-400); Red Blood Cell (RBC) Count 2.79 mill/uL (4.20-5.40); White Blood Cell (WBC) Count 34.9 thou/uL (4.8-10.8)
[2019-02-03 17:01] LABS: Band 9 % (5-11); Elliptocytes SLIGHT = 2-5 cells (100X) (0-1/hpf); Lymphocytes 5 % (21-51); MDiff Complete? YES; Monocytes 2 % (0-10); Neutrophil 84 % (42-75); Ovalocytes SLIGHT = 2-5 cells (100X) (0-1/hpf); Platelet Morphology Comment Appears Adequate; Tear Drops SLIGHT = 2-5 cells (100X) (0-1/hpf)
--- NOTE | 2019-02-03 17:03 | RAD ---
RADIOGRAPH CHEST ONE VIEW RADIOGRAPH ABDOMEN 2 VIEWS: DATE: 02/03/2019 HISTORY: 73-year-old female with constipation, abdominal pain, and abdominal distention. FINDINGS: There are no airspace densities or pulmonary edema. The lateral costophrenic angles are sharp. There is no cardiomegaly. There is no evidence of pneumothorax or pneumoperitoneum. There is a right subclavian implantable vascular access port with distal tip overlying SVC. There is no evidence of dilated small bowel loops. There is gas throughout nondilated colon. There ar e air-fluid levels throughout much of the colon. IMPRESSION: 1) No acute cardiopulmonary findings. 2) no evidence of bowel obstruction. 3) liquid stool throughout the colon indicating impending diarrhea.
[2019-02-03 17:06] LABS: ALT (SGPT) 67 U/L (8-55); AST (SGOT) 48 U/L (5-34); Albumin 3.1 g/dL (3.4-4.8); Alkaline Phosphatase 272 U/L (40-150); Anion Gap 16 mmol/L (10-20); BUN (Urea Nitrogen) 15 mg/dL (9.8-20.1); Bilirubin, Total 0.8 mg/dL (0.2-1.2); Calc. Creatinine Clearance 0 mL/min (70-130); Calcium 8.1 mg/dL (7.8-10.44); Carbon Dioxide 23 mmol/L (23-31); Chloride 98 mmol/L (98-107); Estimated GFR-MDRD Greater than 90; Globulin 2.7 g/dL (2.4-3.5); Glucose 114 mg/dL (83-110); Lipase 18 U/L (8-78); Potassium 3.6 mmol/L (3.5-5.1); Protein, Total 5.8 g/dL (6.0-8.3); Sodium 133 mmol/L (136-145)
[2019-02-03 18:33] LABS: Bilirubin Negative (Negative); Blood, Urine Negative (Negative); Clarity Clear (Clear); Glucose, Urine (Dipstick) Normal (Negative); Leukocyte Negative Leu/uL (Negative); Nitrite Negative (Negative); Protein, Urine (Dipstick) 20 mg/dL (Neg-Trace); Urobilinogen 3 mg/dL (Less than 2)
--- NOTE | 2019-02-03 19:28 | CT ---
CT ABDOMEN WITH CONTRAST CT PELVIS WITH CONTRAST: DATE: 02/03/2019 HISTORY: 73-year-old female with history of biliary cancer presents with diffuse abdominal pain and abdominal distention. COMPARISON: 01/02/2019 TECHNIQUE: IV injection of iodinated contrast media: administered. Oral contrast media:Not administered FINDINGS: The previously demonstrated large right lobe subcapsular hepatic collection has become much larger, n ow measuring larger than 10.5 x 13 x 11 cm, causing mass effect by extrinsically compressing and distorting the entire right lobe of the liver. Anterior to that, the other fluid collection with both subcapsular and extrahepatic-intraperitoneal c omponents, protruding anteriorly into the peritoneal cavity, currently measuring 7.5 x 4 x 7 cm. The numerous other smaller low density lesions scattered throughout the liver have not greatly change d. There is a new finding of diffuse edema throughout the omentum and to a lesser degree mesentery. The omental edema surrounds numerous ill-defined nodular densities highly suspicious for intraperitoneal spread of malignancy. New finding of small to moderate amount of free fluid around the spleen in the left upper quadrant of the abdomen. New finding of free fluid throughout the mesentery, especially left side of the abdomen, spilling into the pelvic cavity. Small amount of free fluid in the posterior dependent portion of the pelvic cavity. New finding of a thin-walled 3.5 x 3.5 x 4 cm loculated fluid collection centered slightly to the rig ht of midline, anterior to the rectum and posterior to the vaginal cuff. Large number of diverticula throughout the sigmoid colon. It is almost impossible to evaluate for col onic diverticulitis because of the extensive fat stranding and fluid present in the abdominal and pelvic cavity. Large number of low-attenuation lesions throughout the bilateral renal parenchyma, too small to characterize. Some of them are cysts. Multiple bilateral parapelvic renal cysts. No hydronephrosis. No definite abnormality of pancreas or adrenals. No abdominal aortic aneurysm. No small bowel dilatio n. Ventral hernia containing small amount of transverse colon. New finding of diffuse fat stranding representing edema throughout the subcutaneous fat anterior to t he anterior abdominal wall. Tiny left pleural effusion. IMPRESSION: 1) dramatic interval change throughout the peritoneal cavity since the prior CT. 2) extensive edema throughout the omentum, mesentery, and pelvic cavity. 3) ill-defined innumerable nodular densities throughout the omentum. 4) the findings are probably those of diffuse intraperitoneal carcinomatosis. The other possibility i s diffuse infectious bacterial peritonitis. 5) significant interval growth in the large right hepatic lobe subcapsular fluid collection, perhaps a hematoma, which is now very large and causes significant distortion and mass effect upon the right lobe of the liver. 6. Another fluid collection straddling the anterior edge of the hepatic parenchyma and the anterior p eritoneal cavity, has also grown significantly.
[2019-02-03 19:58] VITALS: BMI 30.7
[2019-02-03] MEDS ORDERED: Acetaminophen 325 MG TAB PO PRN (20:39)
[2019-02-03] MEDS ORDERED: Morphine 4 MG/ML VIAL SLOW IVP PRN (21:12)
[2019-02-03] MEDS ORDERED: Morphine 10 MG/ML VIAL SLOW IVP PRN ×2 (21:12→22:51)
[2019-02-03] MEDS ORDERED: Ondansetron ODT 4 MG TAB SL PRN (22:53)
[2019-02-03] MEDS ORDERED: Ondansetron PF 4 MG/2 ML Vial SLOW IVP PRN (22:53)
[2019-02-03] MEDS ORDERED: Ondansetron ODT 4 MG TAB PO PRN (22:53)
[2019-02-03] MEDS: Sodium Chloride 0.9% 1,000 ML IV SCH (23:00)
--- NOTE | 2019-02-04 00:38 | HP ---
PRIMARY CARE PHYSICIAN: Oleg Chowdhury MD. CHIEF COMPLAINT: Abdominal pain and swelling and constipation. HISTORY OF PRESENT ILLNESS: This is a 73-year-old female patient of Dr. Chowdhury's who actually has not established with him in the office yet. Her daughter sees him and he has accepted the patient, they just have not been able to have a visit yet anyway. She has not had a bowel movement in 10 days. She is a cancer patient and sees Dr. Carlin. 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 She has been undergoing chemotherapy, believes she has had 5 rounds, the last one was last , 4 days ago. She has not had a bowel movement, and she has been tried on multiple remedies. She talked to the Oncology Team today a couple of times and had took some magnesium citrate and still had no affects, so decided to come on into the emergency room. She denies any fever, vomiting. No shortness of breath. She does feel like her abdomen is swelling. Her clothes are much tighter. She has not had any problems in urination, just has not had a bowel movement. She denies any problems with concentration, coordination, or vision. 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 She also has a history of depression, hypertension, hypercholesterolemia, and she has been seeing Dr. Velazquez. He does not have a hard and fast diagnosis of rheumatoid arthritis with her, but with her symptoms that she has been dealing with for many years, he has been telling her that things were pointing towards rheumatoid arthritis. PAST SURGICAL HISTORY: She had an exploratory laparotomy in August with Dr. Wang and had a duodenal perforation from an ulcer as well as an adherence to the gallbladder, thus causing a transfer of the gallstone into the ileum and she had a gallstone obstruction of the small bowel and then she also had a Jens patch procedure done in addition to the closing of the ileum or ileostomy or ileotomy surgical closure and then she had a partial cholecystectomy due to the friability of the gallbladder and then she had a partial small-bowel resection due to freeing up of the intestine. She has also had a hysterectomy when she was in her 20s. She had a carpal tunnel surgery and some kind of jaw surgery. ALLERGIES: TO PENICILLIN AND HYDROCODONE. CURRENT MEDICATIONS: 1. Plaquenil. 2. Celebrex. 3. Tramadol. 4. Hydroxychloroquine. 5. Compazine. 6. Crestor. 7. Effexor XR. 8. Ambien. FAMILY HISTORY: Essentially is noncontributory. No family history of other cancers. SOCIAL HISTORY: She is retired. She is . She has 2 children, one of the daughters is here. She does not smoke. Does not have any toxic habits. REVIEW OF SYSTEMS: As stated in the HPI. She denies any headache or visual changes. No trouble chewing or swallowing. Overall malaise. She does not feel well. Denies any hemoptysis. Denies any nausea or vomiting. Denies any cough or chest pain. Denies any hematemesis. Denies any dysuria or hematuria. She has had constipation as stated above, but denies any mucus or bright red blood per rectum or hematochezia. Her stools recently have been almost pellets. She denies any paresthesias or dysesthesias. She denies any auditory or visual hallucinations. No homicidal or suicidal ideations. PHYSICAL EXAMINATION: VITAL SIGNS: She is afebrile at 98.5, pulse has been up to 110, but mostly in the 90s, respiration rate is 16 to 20, O2 is at 92% on room air, BP is 126 to 140 systolic with a diastolic of 75 to 80. GENERAL: She is lying in bed relatively comfortable, pleasant and cooperative and conversive. HEENT: Essentially unremarkable. She actually appears older than her stated age of 73. Pupils are equal, round, reactive to light and accommodation. Extraocular movements are intact. Mucous membranes are moist. Sclera is anicteric. Her skin is not jaundiced. NECK: Supple. No JVD. No bruits. No thyromegaly. LUNGS: Clear to auscultation bilaterally with no rales, rhonchi, or wheezes. HEART: S1, S2 with no rubs, murmurs, or gallops at this time. ABDOMEN: Protuberant, but not taut. It is soft. There is a mass effect on the anterior midline or little bit to the right of midline. There is a well-healed midline abdominal scar from the exploratory laparotomy. The liver does feel enlarged to palpation. Bowel sounds are hypoactive at this time. GENITOURINARY: Deferred. EXTREMITIES: Good palpable pulses in all 4 extremities. 1+ edema. NEUROLOGICAL: She is alert and oriented x4. Cranial nerves 2 through 12 are equal and symmetrical. No motor or sensory deficits. DIAGNOSTIC STUDIES: White blood cell count is at 34,000; red blood cell count 2.8; hemoglobin is 8.5; hematocrit is at 25.7; her platelet count is at 144; neutrophils are at 84%; lymphocytes at 5%. Chemistries; sodium is slightly low at 133, potassium 3.6, chloride 98, bicarb 23, BUN is 15, creatinine is 0.6, GFR is greater than 90, glucose 114, AST is 48, AST is 67, alkaline phosphatase is 272. Serum protein is slightly low at 5.8, lipase is normal at 18. Urine is clear with a pH of 6.5 with specific gravity of 1.044 and there is 3+ urobilinogen, but negative bilirubin. CT scan of the abdomen was done showing an interval enlargement of both hepatic fluid collections. The intrahepatic subcapsular collection on the right side measures now 10.5 x 13 x 11 cm causing a mass effect and extrinsically compressing and distorting the entire right lobe of the liver. Anterior to this is another fluid collection. Both subcapsular and extrahepatic intraperitoneal components of this one collection and is protruding anteriorly and it corresponds to the palpable area on exam. That one measures 7.5 x 4 x 7 cm. There also was a note of numerous other smaller low-density lesions scattered throughout the liver that are unchanged from the last CT scan done a couple of months ago. ASSESSMENT: Hepatic fluid collections enlarging with known history of adenocarcinoma of the gallbladder, constipation, fluid abdominal distension. She will be given some IV fluids. We will control her pain. I am going to hold the Plaquenil and the rheumatological medications including the Celebrex. We will control pain with morphine. We will continue her Effexor and later of Ambien if she needs it. The patient is aware of the findings. We will repeat CBC and basic metabolic profile and get a CRP in the morning. Job ID: [id number]
[2019-02-04] MEDS: Morphine 4 MG/ML VIAL SLOW IVP PRN ×2 (05:47→21:13)
[2019-02-04 06:22] LABS: Anion Gap 14 mmol/L (10-20); BUN (Urea Nitrogen) 14 mg/dL (9.8-20.1); CRP (Inflammatory) 7.25 mg/dL (= or < 0.5); Calc. Creatinine Clearance 102 mL/min (70-130); Carbon Dioxide 26 mmol/L (23-31); Chloride 99 mmol/L (98-107); Estimated GFR-MDRD Greater than 90; Glucose 84 mg/dL (83-110); Hemoglobin 8.3 g/dL (12.0-16.0); Mean Corpuscular HGB CONC 32.5 g/dL (32.0-36.0); Mean Corpuscular Hemoglobin 30.4 pg (27.0-31.0); Mean Corpuscular Volume 93.6 fL (78.0-98.0); Mean Platelet Volume 7.5 fL (7.4-10.4); Platelet Count 143 thou/uL (130-400); Potassium 3.8 mmol/L (3.5-5.1); RBC Distribution Width 18.1 % (11.5-14.5); Red Blood Cell (RBC) Count 2.73 mill/uL (4.20-5.40); Sodium 135 mmol/L (136-145); White Blood Cell (WBC) Count 31.6 thou/uL (4.8-10.8)
[2019-02-04 06:25] LABS: Band 20 % (5-11); Lymphocytes 10 % (21-51); MDiff Complete? YES; Neutrophil 70 % (42-75)
[2019-02-04 11:19] LABS: INR-International Normal Ratio 1.2; PTT 32.2 SEC (22.9-36.1); Prothrombin Time 15.1 SEC (12.0-14.7)
[2019-02-04] MEDS ORDERED: Fentanyl 100 MCG/2 ML VIAL ONE (11:52)
[2019-02-04] MEDS ORDERED: Midazolam HCl 2 mg/2 ml Vial ONE (11:52)
[2019-02-04] MEDS ORDERED: Sodium Bicarbonate 2.5 MEQ/5 ML VIAL ONE (11:52)
[2019-02-04] MEDS: Venlafaxine HCl XR 150 MG CAP PO SCH ×2 (12:00→16:25)
[2019-02-04] MEDS: Sodium Chloride 0.9% 1,000 ML IV SCH (12:07)
--- NOTE | 2019-02-04 14:40 | CT ---
CT Cyst Guided Aspiration CT GUIDED ASPIRATION OF SUBCAPSULAR FLUID DENSITY OF THE LIVER CLINICAL HISTORY: Abdominal pain, history of gallbladder malignancy, status post surgery with abdomi nal pain. PROCEDURE: Informed consent was obtained and the patient was escorted to the procedural suite, placed in supine position. Conscious sedation for a total of 45 minutes was performed, administered by the radiology nurse, with the patient consistently monitored throughout the duration of the exam in stable conditio n. The patient's skin was prepped and draped in a standard sterile fashion and topical anesthesia with buffered 1% lidocaine was performed. After a small skin incision was made, a 17-gauge trocar was advanced to the leading edge of the hepatic hypodensity of the right hepatic lobe. After adequate placement was confirmed with CT fluoroscopic imaging, inner stylet was removed and multiple, recurren t aspirations were obtained via percutaneous approach, yielding 325 cc of opaque, brown liquid aspirated. These were confirmed with CT fluoroscopic imaging and the specimens were submitted to the pathologist for subsequent evaluation. Specimens were deemed adequate for interpretation. Therefore, all devices were then removed from the patient. No unexpected procedural complications were present. The patient was monitored in radiology holding i n stable condition prior to discharge with family member. IMPRESSION: Technically successful percutaneous aspiration of previously described subcapsular fluid collection. Laboratory/pathology results are pending.
--- NOTE | 2019-02-04 14:59 | CON ---
DATE OF CONSULTATION: 02/04/2019 HISTORY OF PRESENT ILLNESS: Ms. Rosenbaum is a 73-year-old female with a history of locally advanced cholangiocarcinoma, currently undergoing chemotherapy with cisplatin and gemcitabine treatment. She has just recently completed cycle #5. She was imaged after cycle #3 and was found to have a large hematoma of the liver with questionable slow progression of disease. At that time, we opted to move forward with 2 more cycles of chemotherapy and planned to reimage after this cycle, next week. She presented to the emergency room with complaints of 7 to 10 days of extreme constipation. She has had no significant bowel movements. She does say she is passing gas and has had some very very small stools, but it has been a few days since then. She denies any nausea or vomiting. She has some increasing pain in her right upper quadrant. A CT scan in the emergency room showed progression of the liver "hematoma" with possible peritoneal carcinomatosis and omental edema. She has also a new fluid collection of unknown etiology. Today, she states her pain is better controlled on morphine. She still has not had a bowel movement. She denies any shortness of breath. She states that her abdomen is quite distended. PAST MEDICAL HISTORY: 1. Recent diagnosis of locally advanced cholangiocarcinoma. 2. Depression. 3. Hypertension. 4. Hypercholesterolemia. 5. Osteoarthritis. CURRENT MEDICATIONS: 1. Tylenol p.r.n. 2. Metoprolol 50 mg p.o. daily. 3. Morphine 4 mg IV q.4 hours p.r.n. and 6 mg IV q.4 hours p.r.n. 4. Zofran 4 mg IV q.6 hours p.r.n. 5. Zofran ODT 4 mg p.o. q.6 hours p.r.n. 6. Venlafaxine 150 mg p.o. daily. 7. Ambien 10 mg p.o. at bedtime p.r.n. ALLERGIES: PENICILLIN AND HYDROCODONE. SOCIAL HISTORY: She is here with her daughter, who is quite supportive. She denies tobacco or alcohol use. She is an active grandmother. FAMILY HISTORY: Noncontributory. REVIEW OF SYSTEMS: Otherwise 10-point review of systems is negative including no fevers or chills. PHYSICAL EXAMINATION: VITAL SIGNS: Temperature 98.1, pulse 95 to 108, respirations 18 to 20, O2 saturation 92% to 95% on room air, blood pressure 124/59. GENERAL: She is alert, awake, and oriented x3. She is in no acute distress. Quite pleasant. HEENT: Extraocular muscles are intact. Sclerae are anicteric. NECK: Supple without lymphadenopathy. CARDIOVASCULAR: Regular rhythm. LUNGS: Clear to auscultation bilaterally. ABDOMEN: Distention with tenderness in the right upper quadrant, her liver edge is palpable in the right upper quadrant. She is diffusely mildly tender, but no rebounding or guarding. EXTREMITIES: No edema. LABORATORY DATA: White blood cell count 31.6, hemoglobin 8.3, platelets 143. Sodium 135, potassium 3.8, chloride 99, CO2 of 26, BUN 14, creatinine 0.6, glucose 84, calcium 8.0. C-reactive protein 7.2. IMAGING STUDIES: CT scan of the abdomen and pelvis done in the emergency room showed the previously demonstrated large right lobe subcapsular hepatic collection is now much larger measuring up to 11 cm causing mass effect by extrinsically compressing and distorting the entire right lobe of the liver. Anterior to that, there is an another fluid collection with subcapsular and extrahepatic intraperitoneal components protruding anteriorly into the peritoneal cavity, currently measuring 7.5 cm. There are numerous other smaller low-density lesions scattered throughout the liver, that have not greatly changed, and there is a new finding of diffuse edema throughout the omentum into a lesser degree mesentery. The omental edema surrounds numerous ill-defined nodular densities highly suspicious for intraperitoneal spread of malignancies. ASSESSMENT: Ms. Rosenbaum is a 73-year-old female with; 1. 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 2. Liver "hematoma," progressing and likely more related to malignancy rather than bleeding. 3. Distention with constipation. 4. Right upper quadrant abdominal pain. PLAN: 1. I have discussed the case with the surgeon. He will consult on her today to hopefully help us get her bowels moving. 2. I would recommend biopsy or drainage of the hematoma. Assuming this is malignancy, if it is liquid at all, it may help with symptoms to drain it; if it is hematoma, it will also help if it is drainable. If it is malignant biopsy proving that this is obvious progression would be helpful as well as there may not be other good treatment options. 3. Continue morphine and Zofran for now. 4. We will follow with you. Job ID: [id number]
[2019-02-04] MEDS ORDERED: Polyethylene Glycol 3350 17 GM Packet ONE (16:24)
[2019-02-04 16:30] LABS: BF Color Brown; Clarity Cloudy/Turbid (Clear); Tube # EDTA
--- NOTE | 2019-02-04 16:33 | CON ---
DATE OF CONSULTATION: 02/04/2019 CONSULTING PHYSICIAN: Francie Carlin MD REASON FOR CONSULTATION: Metastatic gallbladder cancer, mass/fluid collection of liver, abdominal distention, perceived constipation. HISTORY OF PRESENT ILLNESS: This patient is a 73-year-old white female, well known to myself. I performed a laparotomy for a gallstone ileus and cholecystectomy at that time, which revealed gallbladder cancer as well. Although, she recuperated quickly from that surgery. When she was seen at [facility] for consideration of additional surgery for her gallbladder cancer, she was found to have evidence of metastatic disease and therefore surgery was now recommended. She had a MediPort placed and has been receiving chemotherapy. She was admitted to the hospital yesterday secondary to abdominal distention and perceived constipation. She tells me that she thinks it has been about 10 days since she had a "good bowel movement." CT scan was obtained at the time of admission. This reveals significant change from the CT scan that she had back in December. The masses in her liver that were identified in December and thought to be fluid collections seen to have enlarged dramatically. Additionally, there are changes in the surrounding omentum consistent with suspected carcinomatosis. She has edematous changes in the abdominal wall and elsewhere within the abdomen. She does not appear to have substantial stool within her colon that we would typically see with constipation. Laboratory studies are significantly abnormal and that her white blood cell count is elevated at 31.6 and her hemoglobin is low at 8.3, platelet count is normal at 143. Her metabolic panel reveals essentially normal electrolytes. Her liver function tests are all little bit elevated and her albumin is little bit low at 3.1. PAST MEDICAL HISTORY: Significant for history of, 1. Anxiety. 2. Gallbladder cancer. PAST SURGICAL HISTORY: 1. Partial hysterectomy at age 28. 2. Complete hysterectomy at age 35. 3. Laparotomy with segmental small bowel resection, repair of duodenal perforation with omental flap, and an open cholecystectomy in August of this year. The pathology of her gallbladder at that time revealed gallbladder cancer. MEDICATIONS: She has been using tramadol at home. ALLERGIES: TO PENICILLIN AND HYDROCODONE. PERSONAL AND SOCIAL HISTORY: She is with children. Her daughter is present today. She does not smoke nor does she drink alcohol. REVIEW OF SYSTEMS: Otherwise, unremarkable. FAMILY HISTORY: Noncontributory. PHYSICAL EXAMINATION: VITAL SIGNS: Temperature is 98.5, pulse 87, and blood pressure 124/59. GENERAL: A well-developed, well-nourished, pleasant white female, resting in bed, in no acute distress. She is alert and oriented x3 and pleasant as always. HEAD, EYES, EARS, NOSE, AND THROAT: Unremarkable. NECK: Supple without mass or tenderness. LUNGS: Clear to auscultation throughout. CARDIAC: Regular rate and rhythm without murmur. ABDOMEN: Soft. It is clearly distended and protuberant. There is no dominant palpable mass that I am able to discern. The CT scan does show a mass or fluid collection projecting from the anterior aspect of the liver near the midline. There is a suggestion of this on physical examination. EXTREMITIES: Unremarkable. ASSESSMENT: The patient with what appears to be rapidly progressing metastatic disease from her gallbladder cancer. Given the significant increase in size in both of the "fluid collections" on her CT scan, I think it is possible that these are in fact solid tumors. I am not certain why a malignant fluid collection would enlarge to this extent. Either way, I have recommended a CT-guided procedure. If it is a fluid collection, then this can be aspirated. If it is solid, then it can be biopsied. In light of the apparent changes in the rest of her abdomen, it appears that her cancer is progressing in spite of her chemotherapy. If this is the case, then, unless a change in chemotherapy is felt to be advisable, she may be to the point that her cancer is progressing in spite of chemotherapy and that hospice should be considered. This would certainly be initiated per Dr. Carlin. In regard to her constipation, I think MiraLAX remains a good option for maintaining appropriate bowel function and this should be continued. She may benefit from a more aggressive bowel prep while she is here in the hospital to make sure that things are moving through appropriately. She does not appear to have any definite obstructive process in place currently. I will continue to see this patient with you. Job ID: [id number]
[2019-02-04 16:48] LABS: BF RBC Count - Manual 84 /cumm; BF WBC/Nonhematics Ct. - Manua 2176 /cumm
[2019-02-04 17:48] LABS: BF Segmented Neutrophils 9 %; Cell Count Non Hematic 30 %; Lymphocytes 61 %
--- NOTE | 2019-02-04 19:58 | PRG ---
DATE OF SERVICE: 02/04/2019 HISTORY OF PRESENT ILLNESS: The patient undergoing CT aspiration versus biopsy of liver lesion versus fluid collection, be it a metastatic disease versus a hemangioma with blood. Results sent to pathology. Following along this point in time, spoke with the patient's daughter and son-in-law at bedside. I explained a little bit more about hospice process if necessary. We will ultimately leave that decision to once report comes back on consistency of liver lesion and if any additional chemo or radiation therapy would be appropriate. They were initially looking at potential surgical resection of area in question with the specialist. However, if this is metastatic disease that would certainly change the patient's clinical picture. We will follow up on surgery and Oncology plans after the CT and this made available. The patient's daughter verbalized understanding regarding pending nature of the study. Answered all questions at bedside. PHYSICAL EXAMINATION: VITAL SIGNS: Review of vital signs; temperature of 98.1, pulse of 95, respiratory rate of 18, and blood pressure of 133/86. LABORATORY WORK: White blood cell count of 31.6, hemoglobin of 8.3, platelet count of 143. INR 1.2. Sodium 135, potassium 3.8, creatinine of 0.6. CRP elevated at 7.2, alkaline phosphatase 272, AST of 48, ALT of 67, total albumin of 3.1, and lipase of 18. Current bacterial growth at 24 hours, negative of urine. Initial 12-hour report of blood cultures are negative. Initial smear of aspirate is white blood cells, no organisms. Given the patient was at CT for prolonged periods of time, deferred exam to following up after performed. ASSESSMENT AND PLAN: Metastatic gallbladder cancer, constipation, anemia of chronic disease, liver lesions as per HPI. Follow up on CT. Cancer and surgery recommendations regarding its findings. The patient continued on morphine and Zofran for pain control and nausea, on MiraLAX for constipation control and low dose of sodium chloride in case the patient is too nauseated to tolerate adequate p.o. Continued on Ambien and Effexor for mood and sleep. We will continue to follow the patient's mood given this new finding and has a progresses. Job ID: [id number]
[2019-02-05] MEDS ORDERED: Mag-Al 1200 mg/1200 mg/30 ML UDCUP PO PRN (00:08)
[2019-02-05] MEDS: Zolpidem Tartrate 5 MG TAB PO PRN ×2 (00:42→21:38)
[2019-02-05] MEDS: Sodium Chloride 0.9% 1,000 ML IV SCH ×2 (01:40→04:24)
--- NOTE | 2019-02-05 08:16 | PDOC.MOPN ---
Interval History: less pain currently, no BM yet - Vital Signs Vital Signs: Vital Signs (12 hours) Temp Pulse Resp BP Pulse Ox 02/05/19 04:30 98.3 F 111 H 16 130/63 94 L 02/05/19 04:00 86 L Weight Admit Weight 168 lb Weight 168 lb 2 oz - Physical Exam General: Alert, Oriented x3 HEENT: Atraumatic Lungs: Clear to auscultation Cardiovascular: Regular rate Abdomen: Other (slight distension, mild tenderness in RUQ) Extremities: No clubbing Skin: No rashes Neurological: Normal speech Psych/Mental Status: Mental status NL - Labs Result Diagrams: 02/04/19 05:51 02/04/19 05:51 Lab results: Laboratory Results - last 24 hr 02/04/19 13:20: Fluid Source , Fluid Tube Number EDTA, Fluid Color Brown, Fluid Clarity Cloudy/Turbid H, Fluid WBC (Manual) 2176, Fluid RBC (Manual) 84, Fluid Seg Neutrophil % 9, Fluid Lymphocytes % 61, Non-Hematological % 30, Fluid Comment Note: 02/04/19 10:35: PT 15.1 H, INR 1.2, APTT 32.2 - Pathology Pathology: cytology pending A/P - Problem (1) 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 laxative, hopefully can get bowels moving, appreciate surgery help 2. ambulate with assistance 3. palliative care consult 4. follow cbc, consider transfusion if she is symptomatic 5. we discussed hospice, she would like to proceed with more treatment if we can improve her symptoms and constipation 6. f/u on cytology
--- NOTE | 2019-02-05 08:55 | PDOC.FMACP ---
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 The diagnosis, prognosis and goals of care were discussed. All questions were answered. The Palliative Care Team will be engaged to assist with completion of any outstanding forms that are needed. we discussed hospice and what this means, she would like to remaing a full code and still consider treatment options for now
[2019-02-05] MEDS ORDERED: Polyethylene Glycol 3350 17 GM Packet PO SCH (09:00)
[2019-02-05] MEDS: Venlafaxine HCl XR 150 MG CAP PO SCH (10:00)
--- NOTE | 2019-02-05 10:56 | PDOC.PALCO ---
Palliative Care Consult - Consult Details Requesting Physician: Dr Carlin Reason for Consult: goals of care, advance directives assistance Family Members Present: Daughter Roya - Pertinent HPI 73 year old female presenting to the emergency room with abdominal pain, increase in abdominal girth and constipation for 10 days. [facility] Carlin for cholangiocarcinoma. Patient seen and evaluated in ER and admitted for further evaluation secondary to hepatic fluid collections, constipation, and pain management. Palliative Care consult for advance directive assist and goals of care. - Pertinent PMH Cholangiocarcinoma, depression, hypertension, hypercholesterolemia, osteoarthritis - Social History Smoking Status: Never smoker Smoking: no tobacco exposure Alcohol Use: none Drug Use History: none Living Situation: independent - Allergies Allergies/Adverse Reactions: Allergies Allergy/AdvReac Type Severity Reaction Status Date / Time Penicillins Allergy Intermediate Rash Verified 02/03/19 19:58 hydrocodone [From [facility]] Allergy Mild Itch Verified 02/03/19 19:58 - Subjective Family at bedside, patient awake, alert and fully oriented. Denies pain at the time of assessment, continued constipation. Reports fluctuating fatigue. History of insomnia however states she slept well last night. ROS: 10 point review of symptoms is negative other than above mentioned. - Objective Vital Signs: Vital Signs - Most Recent Temp Pulse Resp BP Pulse Ox 98.5 F 89 18 144/69 H 94 L 02/05/19 08:30 02/05/19 08:30 02/05/19 08:30 02/05/19 08:30 02/05/19 08:30 Palliative Performance Scale: 50 - Physical Exam Constitutional: NAD HEENT: PERRLA, moist MMs, EOMI Respiratory: unlabored breathing Cardiovascular: RRR Deviation from normal: mildly distended, tenderness Musculoskeletal: no edema Neurological: moves all 4 limbs Psychiatric: normal affect, A&O x 3 Skin: no rash Deviation from normal: Pallor - Problem List (1) Palliative care encounter Code(s): Z51.5 - ENCOUNTER FOR PALLIATIVE CARE Current Visit: Yes Status: Acute (2) 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 Discussed the following * MPOA - Daughter Roya to be primary * Patient asked about "DNAR" and clarification. Gave information and answered questions. Patient states she would like to discuss further tomorrow. *Patient gave life review and identified what is important to her. She enjoys gardening, crafting, making cakes. Has a large craft room with cake pans, cookie cutters, recipe books, fabrics ect. *Patient discussed possible outcomes of test/aspiration yesterday. Theraputic listening. *States she is still constipated *Patient and daughter asked for information and insight into hospice. Plan: *[facility] will assist with MPOA at patient request *Follow up for goals of care after results given and potential plan from oncology *Follow up at patient request to further discuss resuscitation status *Add medication scheduled and prn for constipation *Encouraged patient to have a walker/cane for when fatigue is severe to assist with weakness and prevent injury [120] minutes spent on this encounter with >50% of the time in counseling and coordination of care. Thank you for this very appropriate consult.
[2019-02-05] MEDS ORDERED: Sodium Chloride 0.9% 1,000 ML IV SCH (12:10)
--- NOTE | 2019-02-05 12:29 | PQF ---
EMPERATRIZROOSEVELT JACKSON [id number] CLINICAL DOCUMENTATION IMPROVEMENT CLARIFICATION FORM: ICD-10 Updated PLEASE DO AN ADDENDUM TO THE PROGRESS NOTE WITH ANY DOCUMENTATION UPDATES OR ADDITIONS AND CARRY THROUGH TO DC SUMMARY. THANK YOU. DATE: 02/05/19 ATTN:DR. Arie SWANSON Please exercise your independent, professional judgment in responding to the clarification form. Clinical indicators are provided on the bottom of this form for your review. Please check appropriate box(s): [ x] Hyponatremia Due to Metastatic Gallbladder Cancer [ ] Hyponatremia due to SIADH (Syndrome of Inappropriate Secretion of Antidiuretic Hormone) [ ] Other diagnosis [ ] Unable to determine In addition, please specify: Present on Admission (POA): [ x ] Yes [ ] No [ ] Unable to determine CLINICAL INDICATORS - SIGNS / SYMPTOMS / LABS 02/03 SODIUM 133 02/04 SODIUM 135 02/03 PN (SKY) ASSESSMENT AND PLAN: METASTATIC GALLBLADDER CANCER, CONSTIPATION , ANEMIA OF CHRONIC DISEASE, LIVER LESION. THE PT CONTINUED ON MORPHINE AND ZOFRAN FOR PAIN CONTROL AND NAUSEA, ON MIRALAX FOR CONSTIPATION CONTROL AND LOW DOSE OF SODIUM CHLORIDE IN CASE THE PATIENT IS TOO NAUSEATED TO TOLERATE ADEQUATE P.O. RISK: CONSTIPATION ABD PAIN TREATMENTS IV FLUIDS SERIAL LABS THANK YOU! FARIDA (This form is maintained as a part of the permanent medical record) 2014 [employer] All Rights Reserved [email or web address] [phone] MTDD
[2019-02-05] MEDS: Morphine 4 MG/ML VIAL SLOW IVP PRN (17:02)
[2019-02-05] MEDS: Calcium Carbonate 500 MG ChewTAB PO PRN (17:05)
[2019-02-05] MEDS ORDERED: Morphine 4 MG/ML VIAL SLOW IVP PRN (18:23)
[2019-02-05] MEDS ORDERED: Morphine 10 MG/ML VIAL SLOW IVP PRN (18:23)
[2019-02-05] MEDS ORDERED: HYDROcodone/Acetaminophen 7.5/325 mg Tablet PO PRN (18:23)
[2019-02-05 19:57] VITALS: TEMP 98.1
[2019-02-05] MEDS: Polyethylene Glycol 3350 17 GM Packet PO SCH (20:00)
[2019-02-05] MEDS: Docusate 100 MG CAP PO SCH (20:00)
--- NOTE | 2019-02-05 22:30 | PRG ---
DATE OF SERVICE: 02/05/2019 HISTORY OF PRESENT ILLNESS: The patient was reported by nursing staff to be desaturating overnight while asleep, down into 86 on room air, quickly brought up by nasal cannula, was quickly discontinued when the patient was fully awake. No fevers reported. The patient has had increasing shortness of breath and fatigue over the last several weeks to months but this is secondary to the chemotherapy, however, realizing the patient's abdomen situation may be more related to that given some element of ascites on exam and CT scan. This likely is helping produce an obstructive pattern unclear formally obstructive sleep apnea. The patient has not undergone a sleep study for multiple years. Snores at times but lives alone, so is unable to fully answer questions regarding sleep herself. The patient's daughter and patient verbalized understanding regarding pending full read of fluid studies from aspiration of fluid collection in liver and paracentesis. Discussed at length with reduction of fluids and increase in protein will likely help stabilize as much as possible patient's abdomen, however, this likely will result in worsening fluid collections in the abdomen, progressively over time. May require further therapeutic paracentesis in future rather than just diagnostic. PHYSICAL EXAMINATION: VITAL SIGNS: This a.m., temperature of 98.3, pulse of 111, respiratory rate 16, oxygen saturation 94% on 2 L nasal cannula, blood pressure 130/63. No growth reported at 48 hours on blood, urine reported final negative, fluid aspirate no growth at 24 hours. GENERAL: The patient is alert and oriented. No acute distress. HEENT: Head is normocephalic and atraumatic. Extraocular movements are intact. Oral mucosa is moist. NECK: Supple. HEART: Regular rate and rhythm at the time of exam. No murmurs auscultated. LUNGS: Clear to auscultation bilaterally. No rubs or wheezes. ABDOMEN: Tender to right upper quadrant, right lower quadrant. No formal rebound or guarding. Positive bowel sounds throughout. Mild fluid wave is present. EXTREMITIES: Lower extremities with trace pitting edema bilaterally. No cyanosis formally. Dorsalis pedis pulses are 2+ bilaterally. The patient is alert and oriented x3. No focal deficits. Speech is normal. The patient with flat affect and is anxious regarding psychiatric evaluation. ASSESSMENT AND PLAN: Metastatic gallbladder cancer, constipation, anemia of chronic disease, liver fluid collections, ascites, hypoxia likely obstructive. Differential includes obstructive sleep apnea versus pressure from ascites and liver below. We will transition patient from IV fluids to diuretics. Follow up on electrolytes and magnesium status in the morning. We will supplement if needed. Encouraged the patient to pursue increased protein. The patient has been transitioned from a low-sodium diet to regular diet. Palliative Care has been consulted for the patient. She is not yet ready to make a hospice decision. Awaiting final pathology report of paracentesis and liver aspiration. We will follow up on cancer and surgery recommendations going forward. The patient's constipation has been much improved and starting to achieve good bowel movements today with twice daily MiraLAX and lactulose ordered today. We will follow up tomorrow. Job ID: [id number]
[2019-02-06] MEDS: Calcium Carbonate 500 MG ChewTAB PO PRN ×2 (02:37→08:17)
[2019-02-06 04:14] LABS: ALT (SGPT) 35 U/L (8-55); AST (SGOT) 23 U/L (5-34); Albumin 2.8 g/dL (3.4-4.8); Alkaline Phosphatase 300 U/L (40-150); Anion Gap 11 mmol/L (10-20); BUN (Urea Nitrogen) 8 mg/dL (9.8-20.1); Bilirubin, Total 0.4 mg/dL (0.2-1.2); Calc. Creatinine Clearance 109 mL/min (70-130); Calcium 7.9 mg/dL (7.8-10.44); Carbon Dioxide 26 mmol/L (23-31); Chloride 97 mmol/L (98-107); Estimated GFR-MDRD Greater than 90; Globulin 2.4 g/dL (2.4-3.5); Glucose 107 mg/dL (83-110); Potassium 3.4 mmol/L (3.5-5.1); Protein, Total 5.2 g/dL (6.0-8.3); Sodium 131 mmol/L (136-145)
--- NOTE | 2019-02-06 05:04 | PRG ---
DATE OF SERVICE: 02/05/2019 SUBJECTIVE: Ms. Rosenbaum remains on Oncology floor. She has metastatic gallbladder cancer with enlarging hepatic lesions. One of these lesions was drained yesterday with CT-guided drainage. Approximately, 350 mL of fluid was removed. Studies on this are pending. Initial Gram stain revealed no evidence of organisms. The cell count revealed turbid appearing fluid that had more white blood cells and red blood cells. Cytology is pending as well. She tells me that she feels better today. She seems to be in better spirits. She is tolerating some diet, but has not been eating very much. She still has not had any significant bowel function. OBJECTIVE: VITAL SIGNS: She is afebrile. Pulse is 89, blood pressure 140/60. LUNGS: Clear to auscultation. ABDOMEN: Soft, nontender, nondistended with normoactive bowel sounds. LABORATORY DATA: There were no new labs today. ASSESSMENT: She appears to be improving. To encourage bowel function, I will increase her MiraLAX to twice per day. I have encouraged her to ambulate in the hallway several times a day. Once we get back the results of her liver drainage procedure and her bowel function begins to normalize and I think she will be stable for discharge home. Job ID: [id number]
[2019-02-06] MEDS ORDERED: Magnesium Sulfate 2 GM in Sodium Chloride 0.9% 100 ML IVPB SCH (06:45)
[2019-02-06] MEDS ORDERED: Magnesium 2 GM/50 ML 2 GM in Premix Bag 1 BAG IVPB SCH (07:00)
[2019-02-06] MEDS ORDERED: Furosemide 40 MG TAB PO SCH (07:30)
[2019-02-06] MEDS ORDERED: Spironolactone 25 MG TAB PO SCH (08:00)
[2019-02-06] MEDS ORDERED: Potassium Chloride 20 MEQ TAB PO SCH (08:00)
[2019-02-06 08:27] VITALS: BP 122/68
--- NOTE | 2019-02-06 09:56 | PDOC.MOPN ---
Interval History: Eating breakfast, had mulitple BM's. Feeling much better. - Vital Signs Vital Signs: Vital Signs (12 hours) Temp Pulse Resp BP Pulse Ox 02/06/19 08:00 98.1 F 100 18 122/68 92 L Weight Admit Weight 168 lb Weight 168 lb 2 oz - Physical Exam General: Alert, Oriented x3, No acute distress HEENT: Atraumatic, PERRLA, EOMI, Mucous membr. moist/pink Lungs: Clear to auscultation, Normal air movement Cardiovascular: Regular rate, Normal S1, Normal S2, No murmurs, Gallops, Rubs Abdomen: Soft, No tenderness Extremities: No clubbing, No cyanosis, No edema, Normal pulses, No tenderness/ swelling Skin: No rashes, No breakdown, No significant lesion Neurological: Normal gait, Normal speech, Strength at 5/5 X4 ext, Normal tone, Sensation intact, Cranial nerves 3-12 NL, Reflexes 2+ Psych/Mental Status: Mental status NL - Labs Result Diagrams: 02/04/19 05:51 02/06/19 03:39 Lab results: Laboratory Results - last 24 hr 02/06/19 03:39: Prealbumin 9.0 L 02/06/19 03:39: Sodium 131 L, Potassium 3.4 L, Chloride 97 L, Carbon Dioxide 26 , Anion Gap 11, BUN 8 L, Creatinine 0.57 L, Estimated GFR (MDRD) Greater than 90, Glucose 107, Calcium 7.9, Magnesium 1.0 L, Total Bilirubin 0.4, AST 23, ALT 35, Alkaline Phosphatase 300 H, Serum Total Protein 5.2 L, Albumin 2.8 L, Globulin 2.4, Albumin/Globulin Ratio 1.2 Status: lab reviewed by me A/P - Problem (1) 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 Continue supportive care.
[2019-02-06] MEDS: Polyethylene Glycol 3350 17 GM Packet PO SCH (10:18)
[2019-02-06] MEDS: Venlafaxine HCl XR 150 MG CAP PO SCH (10:18)
[2019-02-06] MEDS: Docusate 100 MG CAP PO SCH (10:18)
--- NOTE | 2019-02-06 16:37 | PDOC.PALPN ---
Palliative Progress Note - Subjective Sleeping but arousable, daughters at bedside. Mild lower abdominal discomfort, non specific. Has had bowel movements, continues with poor appetite. - Objective Vital Signs: Vital Signs - Most Recent Temp Pulse Resp BP Pulse Ox 98.1 F 100 18 122/68 92 L 02/06/19 08:00 02/06/19 08:00 02/06/19 08:00 02/06/19 08:00 02/06/19 08:00 - Physical Exam Constitutional: NAD HEENT: PERRLA, moist MMs, EOMI Respiratory: unlabored breathing Cardiovascular: RRR Deviation from normal: Distended, tenderness with mild palpation. 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 *Added 7.5 norco last night as patient did not want to take Morphine, *Teaching today about taking [place] prior to significant discomfort, will consider scheduling and using Morphine for breakthrough *Discussed high protein diet, suggestions and teaching in relation to foods to consider. *reassess pain and bowel regime tomorrow. *Daughter had questions about various DNAR measures *Supportive and Therapeutic listening *Patient main goal is to enjoy her family, especially great grandchildren [80] minutes spent on this encounter with >50% of the time in counseling and coordination of care.
[2019-02-06 17:23] LABS: Anion Gap 14 mmol/L (10-20); BUN (Urea Nitrogen) 7 mg/dL (9.8-20.1); Calc. Creatinine Clearance 93 mL/min (70-130); Calcium 8.5 mg/dL (7.8-10.44); Carbon Dioxide 25 mmol/L (23-31); Chloride 98 mmol/L (98-107); Estimated GFR-MDRD 87; Glucose 113 mg/dL (83-110); Potassium 3.5 mmol/L (3.5-5.1); Sodium 133 mmol/L (136-145)
[2019-02-06] MEDS ORDERED: Magnesium Oxide 400 MG TAB PO SCH (21:00)
== END 2019-02-06 19:50 | disposition home or self-care (01) | DRG 436 ==
LOC: ERS 15:39 → ONC 17:48 → OBSVTOIN 22:58
PROVIDERS: ADMIT Family Medicine; ATTEND Family Medicine
PROC: 0F913ZZ Drainage of Right Lobe Liver, Percutaneous Approach (ICD-10-PCS; principal; 2019-02-04)
DX: C78.7 Secondary malignant neoplasm of liver and intrahepatic bile duct (principal); E87.1 Hypo-osmolality and hyponatremia; C23 Malignant neoplasm of gallbladder; G47.33 Obstructive sleep apnea (adult) (pediatric); Z51.5 Encounter for palliative care; Z66 Do not resuscitate; K59.00 Constipation, unspecified; F41.9 Anxiety disorder, unspecified; D64.9 Anemia, unspecified; Z88.0 Allergy status to penicillin; Z88.8 Allergy status to other drugs, medicaments and biological substances; Z98.890 Other specified postprocedural states; Z90.49 Acquired absence of other specified parts of digestive tract; Z90.710 Acquired absence of both cervix and uterus
CPT/HCPCS: 36415; 74022; 74177; 77002; 77012; 80048; 80053; 81003; 82248; 83605; 83615; 83690; 83735; 84100; 84134; 84484; 84550; 85025; 85060; 85610; 85730; 86140; 87040; 87070; 87086; 87205; 88112; 88173; 88305; 89051; 93005; 96360; J2250; J2270; J3010; J3475; Q9966